=== PATIENT | female | born 1995 | race Caucasian/White ===

== ENCOUNTER → 2020-10-01 14:32 | Outpatient (CLI) | payer OTHER, SELFPAY ==
[2020-10-01 15:38] LABS: Hematocrit 40.8 % (36-46); Mean Corpuscular HGB Conc 34.3 % (30-36); Mean Corpuscular Hemoglobin 31.5 PG (26-34); Mean Corpuscular Volume 91.9 fL (80-100); Platelet Count 236 X10^3/uL (150-400); Red Blood Cell Count 4.44 X10^6/uL (4.0-5.2); Red Cell Distribution Width 12.5 % (11.6-14.8); White Blood Cell Count 8.7 X10^3/uL (4.5-11.0)
[2020-10-01 15:55] LABS: Alanine Aminotransferase 25 IU/L (<35); Albumin 4.2 g/dL (3.5-5.0); Albumin Globulin Ratio 1.4 (1.0-2.8); Alkaline Phosphatase 70 U/L (38-126); Aspartate Aminotransferase 27 IU/L (14-36); BUN Creatinine Ratio 16.4 (6-22); Bilirubin Total 0.8 mg/dL (0.2-1.3); Blood Urea Nitrogen 12 mg/dL (7-17); Calcium 9.3 mg/dL (8.4-10.2); Carbon Dioxide 29 mmol/L (22-32); Chloride 103 mmol/L (98-107); Estimated Glomerular Filt Rate > 60.0 mL/min (>60); Globulin 2.9 g/dL (1.7-4.1); Glucose 98 mg/dL (70-100); HEMOLYSIS < 15 (0-50); Potassium 3.7 mmol/L (3.4-5.1); Sodium 138 mmol/L (137-145); Total Protein 7.1 g/dL (6.3-8.2)
== END ==
PROVIDERS: Family Provider Pediatrics; PCP Registered Nurse Diabetes Educator; Referring Provider Nurse Practitioner Family; Visit Provider Nurse Practitioner Family
DX: R10.2 Pelvic and perineal pain (principal)
CPT/HCPCS: 36415; 80053; 85027

== ENCOUNTER → 2020-12-10 14:43 | Outpatient (CLI) | payer OTHER, SELFPAY ==
--- NOTE | 2020-12-10 14:46 | DI.US.S_ITS ---
PROCEDURE: US PELVIC COMPLETE INDICATIONS: pelvic pain TECHNIQUE: Real-time scanning was performed of the pelvic organs, with image documentation. Additional endovaginal scanning was necessary due to incomplete visualization of the adnexal and endometrial structures by transabdominal scanning. COMPARISON: [facility], CR, XR ABDOMEN MIN 2V, 12/10/2020, 14:49. FINDINGS: Transabdominal scanning: Limited scanning through the kidneys shows no hydronephrosis. No pathologic free abdominal or pelvic fluid. Endovaginal scanning: Uterus: Uterus is normal in size at 8.2 x 3.5 x 5 cm. The endometrium measures 5 mm in combined thickness. Ovaries: The right ovary measures 2.7 x 1.6 x 2 cm. The left ovary measures 2.5 x 1.6 x 1.2 cm. The ovaries have a normal sonographic appearance. No adnexal masses are seen. Normal appearing arterial waveforms are confirmed to each ovary. IMPRESSION: Unremarkable pelvic ultrasound. Dictated by: Aj He M.D. on 12/10/2020 at 15:52 Approved by: Aj He M.D. on 12/10/2020 at 15:53
--- NOTE | 2020-12-10 14:46 | DI.RAD.S_ITS ---
PROCEDURE: XR ABDOMEN MIN 2V INDICATIONS: chronic lower abdominal pain, R/O stool backup/other TECHNIQUE: 2 views of the abdomen were acquired. COMPARISON: None. FINDINGS: Surgical changes and devices: None. Bowel: No pneumoperitoneum. The bowel gas pattern is normal except for mild colonic obstipation, right greater than left.. Soft tissues: No masses; visualized solid organ contours appear normal in size. No suspicious abdominal calcifications. Bones: No suspicious bony abnormalities. IMPRESSION: Generalized mild colonic obstipation, right greater than left. Dictated by: Aaron Landrum M.D. on 12/10/2020 at 16:25 Approved by: Aaron Landrum M.D. on 12/10/2020 at 16:53
== END ==
PROVIDERS: Family Provider Pediatrics; PCP Registered Nurse Diabetes Educator; Referring Provider Nurse Practitioner Family; Visit Provider Nurse Practitioner Family
DX: R10.2 Pelvic and perineal pain (principal); R10.30 Lower abdominal pain, unspecified; K59.00 Constipation, unspecified
CPT/HCPCS: 74019; 76830; 76856

== ENCOUNTER 2021-03-11 16:08 | Emergency (ER) | payer OTHER, SELFPAY ==
[2021-03-11 16:21] VITALS: BP 130/78; PULSE 76; RESP 16; TEMP 36.9; O2SAT 97; BMI 31.3
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
[2021-03-11] MEDS: ACETAMINOPHEN 325 MG TABLET 650 MG PO (18:19)
[2021-03-11] MEDS: KETOROLAC 60 MG/2 ML VIAL 30 MG IM (19:14)
[2021-03-11 19:27] VITALS: BP 120/74; PULSE 67; RESP 16; O2SAT 97
== END 2021-03-11 19:28 | disposition home or self-care (01) ==
PROVIDERS: Emergency Provider Emergency Medicine; Family Provider Pediatrics; PCP Registered Nurse Diabetes Educator
DX: S16.1XXA Strain of muscle, fascia and tendon at neck level, initial encounter (principal); M62.838 Other muscle spasm; V89.2XXA Person injured in unspecified motor-vehicle accident, traffic, initial encounter
CPT/HCPCS: 96372; 99283; J1885

== ENCOUNTER → 2021-03-19 15:48 | Outpatient (CLI) | payer OTHER, SELFPAY ==
[2021-03-19] MEDS: COVID-19 VACC #1, MRNA(MOD) 100 MCG/0.5 ML VIAL IM (15:58)
== END ==
PROVIDERS: Family Provider Pediatrics; PCP Registered Nurse Diabetes Educator; Visit Provider Internal Medicine
DX: Z23 Encounter for immunization (principal)
CPT/HCPCS: 0011A; 91301

== ENCOUNTER → 2021-04-16 15:16 | Outpatient (CLI) | payer OTHER, SELFPAY ==
[2021-04-16] MEDS: COVID-19 VACC #2, MRNA(MOD) 100 MCG/0.5 ML VIAL IM (15:30)
== END ==
PROVIDERS: PCP Registered Nurse Diabetes Educator; Visit Provider Internal Medicine
DX: Z23 Encounter for immunization (principal)
CPT/HCPCS: 0012A; 91301

== ENCOUNTER → 2021-09-16 09:14 | Outpatient (CLI) | payer OTHER, SELFPAY ==
[2021-09-16 09:57] LABS: COVID19 -Nasal RAPID Negative (Negative)
== END ==
PROVIDERS: PCP Registered Nurse Diabetes Educator; Visit Provider Nurse Practitioner
DX: Z20.822 Contact with and (suspected) exposure to COVID-19 (principal); J02.9 Acute pharyngitis, unspecified; R05.9 Cough, unspecified; R09.81 Nasal congestion; R09.89 Other specified symptoms and signs involving the circulatory and respiratory systems
CPT/HCPCS: 87635